=== PATIENT | male | born 1985 | race Caucasian/White ===

== ENCOUNTER 2019-04-27 23:12 | Emergency (ER) | payer MEDICARE ==
[~2019-04-27] VITALS: Ht 172.7 cm; Wt 81.8 kg
[2019-04-27 23:29] VITALS: Ht 172.7 cm; Wt 81.8 kg
[2019-04-27 23:42] LABS: HEMATOCRIT 39.9 % (42.0-54.0); HEMOGLOBIN 13.4 g/dL (13.5-17.5); LYMPHOCYTES 43.3 % (15-50); MCH 27.2 pg (26.0-34.0); MCHC 33.6 g/dL (31.0-37.0); MCV 80.9 fL (80.0-100.0); MEAN PLATELET VOLUME 9.9 fL (7.4-10.4); NEUTROPHILS 48.1 % (40-80); PLATELET COUNT 233 10x3/uL (130-400); RBC 4.93 10x6/uL (4.20-6.10); RDW 14.5 % (11.5-14.5); WBC 9.9 10x3/uL (4.8-10.8)
[2019-04-27 23:51] LABS: CALC OSMOLALITY 280 mosm/kg (275-300); CALCIUM 8.5 mg/dL (8.5-10.1); CARBON DIOXIDE 25.6 mmol/L (21.0-32.0); CHLORIDE - SERUM 106 mmol/L (98-107); GLUCOSE 109 mg/dL (74-106); POTASSIUM - SERUM 3.6 mmol/L (3.5-5.1); SODIUM 140 mmol/L (136-145); UREA NITROGEN 14 mg/dL (7-18); eGFR NON AFRICAN AMERICAN > 90 mL/min (90-120)
[2019-04-27 23:52] LABS: APTT 24.4 SECONDS (22.8-39.4); INR 1.06 (0.85-1.17); PROTIME 13.3 SECONDS (11.6-15.0)
[2019-04-27 23:57] LABS: ALBUMIN 3.3 g/dL (3.4-5.0); ALKALINE PHOSPHATASE 85 U/L (46-116); ALT (SGPT) 44 U/L (10-68); BILIRUBIN - TOTAL 0.24 mg/dL (0.2-1.3); PROTEIN - SERUM 6.5 g/dL (6.4-8.2)
[2019-04-28 02:30] VITALS: BP 131/85
== END 2019-04-28 02:30 | disposition home or self-care (01) ==
LOC: D.ER 23:12
PROVIDERS: Family Medicine
DX: K62.5 Hemorrhage of anus and rectum (principal)

== ENCOUNTER → 2019-06-09 11:42 | Outpatient (CLI) | payer MEDICARE ==
[2019-04-27 23:29] VITALS: BMI 27.4
[2019-06-09 12:24] LABS: BASOPHILS 0.4 % (0-2); EOSINOPHILS 3.7 % (0-7); HEMATOCRIT 40.9 % (42.0-54.0); IMMATURE GRANULOCYTES 0.2 % (0-5); LYMPHOCYTES 38.7 % (15-50); MCH 24.8 pg (26.0-34.0); MCHC 31.8 g/dL (31.0-37.0); MCV 77.9 fL (80.0-100.0); MEAN PLATELET VOLUME 10.3 fL (7.4-10.4); MONOCYTES 10.9 % (2-11); NEUTROPHILS 46.1 % (40-80); PLATELET COUNT 274 10x3/uL (130-400); RBC 5.25 10x6/uL (4.20-6.10); RDW 14.5 % (11.5-14.5); WBC 5.4 10x3/uL (4.8-10.8)
[2019-06-09 12:49] LABS: % SATURATION 9 % (15-55); IRON 39 ug/dl (35-150); TOTAL IRON BIND CAPACITY 424 ug/dl (260-445); UNSAT IRON BIND CAPACITY 385 ug/dl (150-375)
== END | disposition home or self-care (01) ==
LOC: D.LAB 11:42
PROVIDERS: ATTEND Clinical Nurse Specialist Family Health
DX: K92.1 Melena (principal); D64.9 Anemia, unspecified

== ENCOUNTER → 2019-07-22 10:17 | Outpatient (CLI) | payer MEDICARE, OTHER ==
[2019-04-27 23:29] VITALS: BMI 27.4
[2019-07-22 13:03] LABS: BASOPHILS 0.2 % (0-2); EOSINOPHILS 3.2 % (0-7); HEMOGLOBIN 12.3 g/dL (13.5-17.5); IMMATURE GRANULOCYTES 0.2 % (0-5); LYMPHOCYTES 40.5 % (15-50); MCH 23.6 pg (26.0-34.0); MCHC 31.5 g/dL (31.0-37.0); MCV 74.7 fL (80.0-100.0); MEAN PLATELET VOLUME 9.9 fL (7.4-10.4); MONOCYTES 6.9 % (2-11); PLATELET COUNT 279 10x3/uL (130-400); RBC 5.22 10x6/uL (4.20-6.10); RDW 15.4 % (11.5-14.5); WBC 5.7 10x3/uL (4.8-10.8)
[2019-07-22 13:05] LABS: ALBUMIN 3.7 g/dL (3.4-5.0); ALKALINE PHOSPHATASE 91 U/L (30-120); ALT (SGPT) 37 U/L (10-68); BILIRUBIN - DIRECT 0.07 mg/dL (0.00-0.30); BILIRUBIN - INDIRECT 0.16 mg/dL (0.00-1.00); BILIRUBIN - TOTAL 0.23 mg/dL (0.2-1.3); CALC OSMOLALITY 283 mosm/kg (275-300); CALCIUM 9.1 mg/dL (8.5-10.1); CARBON DIOXIDE 27.8 mmol/L (21.0-32.0); CHLORIDE - SERUM 106 mmol/L (98-107); CREATININE - SERUM 1.1 mg/dL (0.6-1.3); GLUCOSE 99 mg/dL (74-106); POTASSIUM - SERUM 4.3 mmol/L (3.5-5.1); PROTEIN - SERUM 7.1 g/dL (6.4-8.2); SODIUM 142 mmol/L (136-145); UREA NITROGEN 15 mg/dL (7-18); eGFR NON AFRICAN AMERICAN 82 mL/min (90-120)
== END | disposition home or self-care (01) ==
LOC: D.LAB 10:15 → D.CT 10:30
PROVIDERS: ATTEND Surgery
DX: C18.9 Malignant neoplasm of colon, unspecified (principal)

== ENCOUNTER 2019-07-26 11:37 | Inpatient (IN) | payer MEDICARE, OTHER ==
[~2019-07-26] VITALS: Ht 177.8 cm; Wt 107.0 kg
[2019-07-26 12:06] LABS: BASOPHILS 0.4 % (0-2); EOSINOPHILS 3.7 % (0-7); HEMATOCRIT 41.9 % (42.0-54.0); HEMOGLOBIN 13.5 g/dL (13.5-17.5); IMMATURE GRANULOCYTES 0.2 % (0-5); LYMPHOCYTES 37.6 % (15-50); MCH 23.6 pg (26.0-34.0); MCHC 32.2 g/dL (31.0-37.0); MCV 73.3 fL (80.0-100.0); MONOCYTES 7.2 % (2-11); NEUTROPHILS 50.9 % (40-80); PLATELET COUNT 280 10x3/uL (130-400); RBC 5.72 10x6/uL (4.20-6.10); RDW 15.2 % (11.5-14.5); WBC 5.5 10x3/uL (4.8-10.8)
[2019-07-26] MEDS ORDERED: LISINOPRIL5 MG PO (12:11)
[2019-07-26 12:28] LABS: CALC OSMOLALITY 275 mosm/kg (275-300); CALCIUM 8.8 mg/dL (8.5-10.1); CARBON DIOXIDE 26.1 mmol/L (21.0-32.0); CHLORIDE - SERUM 105 mmol/L (98-107); CREATININE - SERUM 1.1 mg/dL (0.6-1.3); GLUCOSE 91 mg/dL (74-106); POTASSIUM - SERUM 3.9 mmol/L (3.5-5.1); SODIUM 138 mmol/L (136-145); UREA NITROGEN 13 mg/dL (7-18); eGFR NON AFRICAN AMERICAN 82 mL/min (90-120)
[2019-07-26 12:31] VITALS: BP 125/90; BMI 33.9
--- NOTE | 2019-07-26 15:34 | NUR ---
1535 report given to ANABELA DAWSON PT TOLERATING CLEAR LIQ DIET.
[2019-07-26 16:26] VITALS: BP 146/79; BMI 33.9
[2019-07-26 20:00] VITALS: BP 139/84
--- NOTE | 2019-07-26 21:40 | NUR ---
AWAKE. LYING IN BED. FATHER AT BEDSIDE. RESP EVEN AND NONLABORED. DENIES PAIN. STATES EVERYTHING HE DRINKS COMES BACK OUT. REPORTS DIARRHEA. HAD COLONOSCOPY TODAY. NPO AFTER MN AND VERBALIZES UNDERSTANDING. CONSENTS SIGNED AND ON CHART. D5LR WITH 20 MEQ KCL @ 125 MLHR INFUSING IN RT HAND. ALERT AND ORIENTED X4. NO DISTRESS. CL IN REACH.
[2019-07-27] VITALS (13 sets, daily range): BP systolic 108–141; BP diastolic 60–94
--- NOTE | 2019-07-27 01:01 | NUR ---
LYING ON LT SIDE IN BED. AWAKE. DENIES PAIN. NO DISTRESS. FATHER AT BEDSIDE. SR ELEVATED X2. CL IN REACH.
[2019-07-27 05:19] LABS: BASOPHILS 0.2 % (0-2); EOSINOPHILS 3.1 % (0-7); HEMATOCRIT 35.9 % (42.0-54.0); HEMOGLOBIN 11.3 g/dL (13.5-17.5); LYMPHOCYTES 40.2 % (15-50); MCH 23.1 pg (26.0-34.0); MCHC 31.5 g/dL (31.0-37.0); MCV 73.3 fL (80.0-100.0); MEAN PLATELET VOLUME 9.8 fL (7.4-10.4); MONOCYTES 8.4 % (2-11); NEUTROPHILS 48.1 % (40-80); PLATELET COUNT 251 10x3/uL (130-400); RDW 15.3 % (11.5-14.5); WBC 5.7 10x3/uL (4.8-10.8)
[2019-07-27 05:30] LABS: CALC OSMOLALITY 279 mosm/kg (275-300); CALCIUM 7.6 mg/dL (8.5-10.1); CARBON DIOXIDE 27.1 mmol/L (21.0-32.0); CHLORIDE - SERUM 108 mmol/L (98-107); GLUCOSE 100 mg/dL (74-106); INR 1.1 (0.85-1.17); POTASSIUM - SERUM 3.8 mmol/L (3.5-5.1); PROTIME 14.2 SECONDS (11.6-15.0); SODIUM 141 mmol/L (136-145); eGFR NON AFRICAN AMERICAN > 90 mL/min (90-120)
[2019-07-27 05:40] LABS: UREA NITROGEN 9 mg/dL (7-18)
--- NOTE | 2019-07-27 06:40 | NUR ---
HAS HAD HCG SHOWER THIS AM. DENIES NEEDS. CALM AND IN GOOD SPIRITS. FATHER AT BEDSIDE. CL IN REACH. NO DISTRESS.
--- NOTE | 2019-07-27 17:15 | NUR ---
PATIENT BACK TO ROOM FROM SURGERY VS STABLE. IV INTACT. PAIN AT A 8. SCDS ON AND WORKING. WILL GIVE PAIN MEDS AND START DRAMA DIRECTOR . PROVENA WOUND VAC ON. EDWARD DRAIN COMPRESSED. FAMILY AT BEDSIDE. CALL LIGHT WITHN REACH.
--- NOTE | 2019-07-27 18:45 | NUR ---
PATIENT IN BED WITH VS STABLE. NO COMPLAINTS. IV AND VERA INTACT. PROVENA AND SCDS ON AND WORKING. PAIN AT A 4 NOW. ANGLEDOZER OPERATOR ON AND WORKING. CALL LIGHT WITHIN REACH.
--- NOTE | 2019-07-27 19:30 | NUR ---
PT SITTING UP IN BED RESTING WITHOUT DISTRESS. AOX4, MOTHER AT BEDSIDE. IV RIGHT HAND IFUSING D5LR 20K @ 125 WITH MORPHINE FINISH SPECIALIST. STATES PAIN 09/01. DRESSING TO ABD CDI. EDWARD DRAIN IN PLACE. WOUND VAC WORKING, SCDS ON BILAT. O2 2L/NC. VREA IN PLACE. PROVIDED ICE CHIPS. DENIES OTHER NEEDS. CL IN REACH, WILL CTM
--- NOTE | 2019-07-27 22:00 | NUR ---
IV RIGHT HAND INFILTRATED, REMOVED WITH CATHETER INTACT. RESITED 20G IV LEFT FA X1 ATTEMPT
[2019-07-28] VITALS: BP 121/72
[2019-07-28 04:00] VITALS: BP 130/71
[2019-07-28 05:50] LABS: BASOPHILS 0.1 % (0-2); EOSINOPHILS 0 % (0-7); HEMATOCRIT 36.9 % (42.0-54.0); HEMOGLOBIN 11.7 g/dL (13.5-17.5); IMMATURE GRANULOCYTES 0.2 % (0-5); LYMPHOCYTES 9.9 % (15-50); MCH 23.1 pg (26.0-34.0); MCHC 31.7 g/dL (31.0-37.0); MCV 72.8 fL (80.0-100.0); MEAN PLATELET VOLUME 10.2 fL (7.4-10.4); MONOCYTES 7.6 % (2-11); NEUTROPHILS 82.2 % (40-80); PLATELET COUNT 281 10x3/uL (130-400); RBC 5.07 10x6/uL (4.20-6.10); RDW 15.4 % (11.5-14.5)
[2019-07-28 06:03] LABS: WBC 15.4 10x3/uL (4.8-10.8)
[2019-07-28 06:14] LABS: CALCIUM 8.3 mg/dL (8.5-10.1); CARBON DIOXIDE 24.3 mmol/L (21.0-32.0); CREATININE - SERUM 1.2 mg/dL (0.6-1.3); POTASSIUM - SERUM 4.3 mmol/L (3.5-5.1)
[2019-07-28 09:34] VITALS: BP 122/68
--- NOTE | 2019-07-28 11:20 | NUR ---
ORDER TO TURN UP V BELT MOLD ASSEMBLER AND CURER TO 07/04/19. PATIENT ISNT USING V BELT MOLD ASSEMBLER AND CURER AT THIS TIME AND SAYS HIS PAIN IS AT A 2-5 AT TIMES. STATED HE ONLY PUSHES THE BUTTON IF HE REALLY NEEDS TO. EXPLAINED THAT IF HIS PAIN IS WORSE AND HE NEEDS MORE MEDS I WILL TURN IT UP IF NEEDED. VERBALIZED UNDERSTANDING.
--- NOTE | 2019-07-28 11:28 | NUR ---
PATIENT VERA REMOVED AT THIS TIME. EXPLAINED TO PATIENT THAT HE WILL NEED TO GET OUT OF BED AND AMBULATE IN HALLS. VERBALIZED UNDERSTANDING. NO QUESTIONS AT THIS TIME. IV INTACT. URINAL GIVEN TO PATIENT. CALL LIGHT WITHIN REACH.
--- NOTE | 2019-07-28 12:15 | NUR ---
PATIENT UP OOB VOIDED WITH NO PROBLEMS. AMBULATING IN ROOM AND UP TO CHAIR. PT TO WALK PATIENT. WOUND VAC AND IV INTACT. EDWARD DRAIN COMPRESSED DRESSING CDI. NO COMPLAINTS OR SIGNS OF DISTRESS. CALL LIGHT WITHIN REACH.
--- NOTE | 2019-07-28 18:03 | NUR ---
PATIENT IN BED WITH IV INTACT. NO COMPLAINTS OR SIGNS OF DISTRESS. PROVENA WOUND VAC INTACT. VERA TO GRAVITY. BSCDS ON AND WORKING. CALL LIGHT WITHIN REACH.
--- NOTE | 2019-07-28 18:06 | NUR ---
PATIENT UP IN CHAIR WITH NO COMPLAINTS OR SIGNS OF DISTRESS. IV INTACT. EDWARD AND PROVENA INTACT. CALL LIGHT WITHIN REACH.
[2019-07-28 18:07] VITALS: BP 110/78
[2019-07-28 20:00] VITALS: BP 133/87
[2019-07-29] VITALS: BP 122/77
[2019-07-29 04:00] VITALS: BP 118/73
[2019-07-29 04:14] LABS: BASOPHILS 0.1 % (0-2); EOSINOPHILS 0.5 % (0-7); HEMATOCRIT 32.3 % (42.0-54.0); HEMOGLOBIN 10.2 g/dL (13.5-17.5); IMMATURE GRANULOCYTES 0.1 % (0-5); LYMPHOCYTES 21.5 % (15-50); MCH 23.3 pg (26.0-34.0); MCHC 31.6 g/dL (31.0-37.0); MCV 73.7 fL (80.0-100.0); MEAN PLATELET VOLUME 9.9 fL (7.4-10.4); MONOCYTES 8.8 % (2-11); PLATELET COUNT 248 10x3/uL (130-400); RBC 4.38 10x6/uL (4.20-6.10); RDW 15.9 % (11.5-14.5)
[2019-07-29 04:15] LABS: WBC 9.5 10x3/uL (4.8-10.8)
[2019-07-29 04:30] LABS: CALCIUM 8.3 mg/dL (8.5-10.1); CARBON DIOXIDE 27.1 mmol/L (21.0-32.0); CHLORIDE - SERUM 108 mmol/L (98-107); CREATININE - SERUM 1.1 mg/dL (0.6-1.3); POTASSIUM - SERUM 3.7 mmol/L (3.5-5.1); SODIUM 141 mmol/L (136-145); eGFR NON AFRICAN AMERICAN 82 mL/min (90-120)
[2019-07-29 04:33] LABS: CALC OSMOLALITY 281 mosm/kg (275-300); GLUCOSE 104 mg/dL (74-106); UREA NITROGEN 15 mg/dL (7-18)
--- NOTE | 2019-07-29 04:45 | NUR ---
ASSESSED AT THE BEGINNING OF THE SHIFT. PT IS ALERT AND ORIENTED, ABLE TO VERBALIZE NEEDS. HE HAS CHE UP WALKING EARLIER AND NO LONGER HAS A VERA BUT HAS DONE WELL BY HIMSELF. HE DID COMPLAIN ABOUT HIS IV HURTING EVEN THOUGH IT FLUSHED WELL. IT WAS MOVED TO HIS RIGHT WRIST. WOUND VAC REMAINS IN PLACE AND EDWARD DRAIN ACTIVATED. SCD'S OFF AT THIS TIME AND IS USING HIS WASHING MACHINE INSTALLER FOR PAIN CONTROL.
--- NOTE | 2019-07-29 07:41 | NUR ---
RESTING IN BED WITH EYES OPEN, NO S/S OF DISTRESS NOTED AT THIS TIME. IV LOCATED TO RIGHT WRIST RUNNING D5LR W/20K+, MORPHINE OPERATIONS RESEARCH ENGINEER. WOUND VAC PRESENT TO MIDLINE, EDWARD DRAIN LOCATED TO RIGHT SIDE. DENIES CURRENT NEEDS, WILL CONT TO MONITOR.
[2019-07-29 08:43] VITALS: BP 134/84
[2019-07-29 12:12] VITALS: BP 138/93
--- NOTE | 2019-07-29 13:34 | NUR ---
STILL WAITING FOR 1100 FLUIDS TO COME UP FROM PHARMACY, HAVE SPOKEN WITH THEM X3.
--- NOTE | 2019-07-29 13:50 | NUR ---
Nutrition follow-up: Pt POPD 2 of hemicolectomy Clear liquid diet Wound VAC Wt: 236# Labs reviewed Recommend starting Clinimix @ 100 ml/hr until po diet can resume RDN following.
[2019-07-29 13:52] VITALS: Ht 177.8 cm; Wt 107.0 kg
--- NOTE | 2019-07-29 15:32 | MORECARE ---
CASE MANAGEMENT DISCHARGE SUMMARY PATIENT: ELIS JAMES UNIT: [id number] ADM DATE: 07/26/19 AGE: 33 : 87 SEX: M ROOM/BED: D.2209 AUTHOR: CIRA,DOC PHYSICIAN: REFERRING PHYSICIAN: JEREMÍAS SWAN MD DATE OF SERVICE: 07/29/19 Discharge Plan Patient Name: ELIS JAMES Facility: [facility]:[place] : 1985 Planned Disposition: Home or Self Care Anticipated Discharge Date: Discharge Date: Expected LOS: Initial Reviewer: [email or web address] Initial Review Date: 07/27/2019 Generated: 07/29/19 4:31 pm Comments DCP- Discharge Planning Updated by [email or web address]: Shy Hutchison on 07/29/19 2:[address] Patient Name: ELIS JAMES Admission Status: Elective Accout number: [id number] Admission Date: 07-26-2019 : 1985 Admission Diagnosis:MALIGNANT NEOPLASM OF COLON, UNSPECIFIED Attending: JEREMÍAS SWAN Current LOS: 3 Anticipated DC Date: Planned Disposition: Home or Self Care Primary Insurance: Abigail Stewart Discharge Planning Comments: CM met with patient to complete initial dc planning assessment. CM educated patient on the CM role and verbal consent given by patient to complete assessment. Patient lives at home with his and mother where he is independent with his care. At discharge patient plans to return home and feels this is a safe discharge. CM discussed availability of home health, rehab services, and medical equipment. He denies any anticipated needs at this time. Patient denied known discharge needs at this time. CM will continue to follow and will assist as needed with dc plans/needs. Metal Bed Assembler: Shy Hutchison DCP- Discharge Planning Updated by [email or web address]: Shy Hutchison on 07/29/19 12:[address] EVANE WITH [facility] CALLED AND STATED THAT SHE IS HIS CM AND CAN HELP WITH DC PLANNING HER NUMBER IS [phone] EXT [phone] DCPIA - Discharge Planning Initial Assessment Updated by [email or web address]: Shy Hutchison on 07/29/19 3:27 pm * Is the patient Alert and Oriented? Yes * How many steps to enter\exit or inside your home? 1 FLIGHT * PCP DR ROBLES * Pharmacy [facility] [address] * Preadmission Environment Home with Family * ADLs Independent * Equipment None * List name and contact numbers for known caregivers / representatives who currently or will assist patient after discharge: KAYDEN (MOTHER) [phone] VICKIE () * Verbal permission to speak to the caregivers and representatives has been obtained from the patient. N/A * Community resources currently utilized None * Additional services required to return to the preadmission environment? No * Can the patient safely return to the preadmission environment? Yes * Has this patient been hospitalized within the prior 30 days at any hospital? No Patient Name: ELIS JAMES Page [id number] at 1532 All edits/amendments must be made on the electronic document DICTATION DATE: 07/29/191530 HIGH SCHOOL BAND TEACHER: PAMELA 07/29/191530 RPT#: [id number] DC DATE: STATUS: ADM IN [facility] [address] [place] [address] END OF REPORT
[2019-07-29 17:03] VITALS: BP 128/77
--- NOTE | 2019-07-29 17:59 | OP ---
PATIENT NAME: ELIS JAMES MEDICAL RECORD: [id number] :[birth year] LOCATION:D.MS [address] ADMISSION DATE:07/26/19 SURGEON: SHARI COPELAND MD DATE OF OPERATION: 07/27/2019 FIRE INVESTIGATION LIEUTENANT'S NOTE: I assisted Dr. Vahid Quiroz with hand-assisted laparoscopic sigmoid colectomy. My involvement in the case included only dilation of the rectum and advancement and firing of the EEA stapler and then the pneumatic check of the staple line. I scrubbed in. I went below. Utilizing well lubricated EEA sizers, I was able to advance all the way through the anus and up into the rectum and advanced into the rectal stump. I dilated to 33-mm. I then advanced a 25-mm EEA stapler. Under his guidance, I deployed the needle on the anterior surface of the rectum. It was attached to the anvil. I then tightened down on the stapling device and it was held in place for 2 minutes and then fired. I then loosened up on the stapling device and removed it. There were 2 doughnuts of the large bowel within the stapling device. Dr. Quiroz then prepared the anastomosis further with some and some sutures at the anastomosis. I then placed a Sb syringe up through the anus and sequentially inflated the rectum. We were able to visualize this through the laparotomy incision with saline covering the anastomosis. There was no bubbling from the anastomosis and therefore an airtight anastomosis. It was at this point that I scrubbed out. TRANSINT:[id number] Voice Confirmation ID: [id number] DOCUMENT ID: [id number] SHARI COPELAND MD at 1759 CC: [id number] DICTATION DATE: 07/27/19 1616 TASTE TESTER: 07/27/19 2130 ADM IN [facility] [address] [place] [address]
[2019-07-29 20:26] VITALS: BP 125/93
[2019-07-30 00:35] VITALS: BP 126/73
--- NOTE | 2019-07-30 03:06 | NUR ---
PATIENT REPORTS THAT HE IS PASSING SMALL AMOUNTS OF GAS
--- NOTE | 2019-07-30 03:18 | NUR ---
I have reviewed this patient and I concur with the Shift Assessment completed by the Licensed Practical Nurse today this shift.
[2019-07-30 04:55] VITALS: BP 139/91
[2019-07-30 04:57] LABS: BASOPHILS 0.1 % (0-2); EOSINOPHILS 1.8 % (0-7); HEMATOCRIT 34.6 % (42.0-54.0); HEMOGLOBIN 10.9 g/dL (13.5-17.5); IMMATURE GRANULOCYTES 0.2 % (0-5); LYMPHOCYTES 19.6 % (15-50); MCH 23.4 pg (26.0-34.0); MCHC 31.5 g/dL (31.0-37.0); MCV 74.4 fL (80.0-100.0); MEAN PLATELET VOLUME 9.6 fL (7.4-10.4); MONOCYTES 8.1 % (2-11); NEUTROPHILS 70.2 % (40-80); PLATELET COUNT 260 10x3/uL (130-400); RBC 4.65 10x6/uL (4.20-6.10); RDW 15.9 % (11.5-14.5); WBC 8.5 10x3/uL (4.8-10.8)
[2019-07-30 05:13] LABS: CALC OSMOLALITY 275 mosm/kg (275-300); CALCIUM 8.6 mg/dL (8.5-10.1); CARBON DIOXIDE 26.8 mmol/L (21.0-32.0); CHLORIDE - SERUM 104 mmol/L (98-107); GLUCOSE 107 mg/dL (74-106); POTASSIUM - SERUM 3.8 mmol/L (3.5-5.1); SODIUM 138 mmol/L (136-145); UREA NITROGEN 13 mg/dL (7-18); eGFR NON AFRICAN AMERICAN > 90 mL/min (90-120)
[2019-07-30 09:52] VITALS: BP 145/101
[2019-07-30 11:09] LABS: HEPATITIS C ANTIBODY <0.1 (0.0-0.9)
--- NOTE | 2019-07-30 11:36 | NUR ---
C/O NAUSEA DURING THE NIGHT, AND REFLUX. DOES NOT WANT TO EAT MUCH. TRYING TO EAT JELLO AND DRINK.
[2019-07-30 14:24] VITALS: BP 138/94
[2019-07-30 16:56] VITALS: BP 133/92
--- NOTE | 2019-07-30 19:05 | NUR ---
PATIENT HAS SEVERAL FAMILY MEMBERS IN ROOM. REPORTS SEVERAL BOWEL MOVEMENTS TODAY. INCISION REMAINS WITHOUT REDNESS OR SWELLING. WOUND VAC ATTACHED, TURNED ON, AND WORKING APPROPRIATELY. EDWARD DRAIN TO THE LEFT SIDE OF ABDOMEN WHICH HAS SCANT AMOUNT OF SEROUS DRAINAGE. PATINET HAS RIGHT FOERARM IV THAT IS PATENT AND INFUSING D5LR WITH 20 K @ 40 MLS PER HOUR. PATIENT DENIES NEEDS AT THIS TIME. STATES HE DOES NOT WANT MIRALAX AT 2100, THAT HE HAS HAD SEVERAL BOWEL MOVEMENTS ON HIS OWN. HE ALSO STATES THAT HE WOULD RATHER HAVE THE NORCO THAN REGULAR SCHEDULED TYLENOL WHEN HS MEDICATION ARE DUE. DENIES FURTHER NEEDFS AT THIS TIME. CALL LIGHT IS IN REACH OF PATIENT. CPOC.
[2019-07-30 20:00] VITALS: BP 133/91
--- NOTE | 2019-07-30 21:20 | NUR ---
HS MEDICATIONS PROVIDED. PATIENT STATES HE HAD TWO MORE TINY BOWEL MOVEMENTS. DENIES NEEDS AT THIS TIME. CPOC.
--- NOTE | 2019-07-30 22:58 | NUR ---
RESTING WITH NO SIGNS OR SYMPTOMS OF DISTRESS AT THIS TIME. CALL LIGHT REMAINS IN REACH. CPOC.
--- NOTE | 2019-07-30 23:00 | NUR ---
I have reviewed this patient and I concur with the Shift Assessment completed by the Licensed Practical Nurse today this shift.
[2019-07-31] VITALS: BP 139/95
--- NOTE | 2019-07-31 00:58 | NUR ---
PATIENT COMPLAINING OF PAIN TO THE RIGHT FA IV. ASSESSED AND NO SIGNS OF INFILTRATION. RESITED IV TO THE LEFT HAND. 22 G, ONE ATTEMPT.
[2019-07-31 04:00] VITALS: BP 136/93
[2019-07-31 06:42] LABS: BASOPHILS 0.1 % (0-2); EOSINOPHILS 3.3 % (0-7); HEMATOCRIT 31.2 % (42.0-54.0); HEMOGLOBIN 9.8 g/dL (13.5-17.5); IMMATURE GRANULOCYTES 0.1 % (0-5); LYMPHOCYTES 27.4 % (15-50); MCH 23.2 pg (26.0-34.0); MCHC 31.4 g/dL (31.0-37.0); MCV 73.8 fL (80.0-100.0); MEAN PLATELET VOLUME 10.3 fL (7.4-10.4); MONOCYTES 7.3 % (2-11); NEUTROPHILS 61.8 % (40-80); PLATELET COUNT 269 10x3/uL (130-400); RBC 4.23 10x6/uL (4.20-6.10); RDW 15.9 % (11.5-14.5); WBC 6.8 10x3/uL (4.8-10.8)
[2019-07-31 07:04] LABS: CALC OSMOLALITY 269 mosm/kg (275-300); CALCIUM 8.7 mg/dL (8.5-10.1); CARBON DIOXIDE 25.2 mmol/L (21.0-32.0); CHLORIDE - SERUM 102 mmol/L (98-107); CREATININE - SERUM 0.8 mg/dL (0.6-1.3); GLUCOSE 100 mg/dL (74-106); POTASSIUM - SERUM 3.7 mmol/L (3.5-5.1); SODIUM 135 mmol/L (136-145); UREA NITROGEN 13 mg/dL (7-18); eGFR NON AFRICAN AMERICAN > 90 mL/min (90-120)
[2019-07-31 08:38] VITALS: BP 126/87
[2019-07-31] MEDS ORDERED: ZOFRAN4 MG PO (10:35)
[2019-07-31] MEDS ORDERED: HYDROCODON-ACE1 EAC7 PO (10:35)
[2019-07-31] MEDS ORDERED: MIRALAX17 GM PO (10:35)
--- NOTE | 2019-07-31 12:00 | NUR ---
DISCHARGE INSTRUCTIONS GONE OVER WIHT THE PATIENT AND HIS MOTHER. THE WOUND VAC IS OFF AND THE EDWARD IS OUT, REMOVED THE IV FROM THE LEFT HAND. QUESTIONS ANSWERED, HE IS READY TO GO HOME. FELT VIA WHEELCHAIR.
--- NOTE | 2019-08-01 12:02 | MORECARE ---
CASE MANAGEMENT DISCHARGE SUMMARY PATIENT: ELIS JAMES UNIT: [id number] ADM DATE: 07/26/19 AGE: 33 : [birth year] SEX: M ROOM/BED: D.2209 AUTHOR: CIRA,DOC PHYSICIAN: REFERRING PHYSICIAN: JEREMÍAS SWAN MD DATE OF SERVICE: 08/01/19 Discharge Plan Patient Name: ELIS JAMES Facility: [facility]:[place] : 1985 Planned Disposition: Home or Self Care Anticipated Discharge Date: Discharge Date: 07/31/2019 Expected LOS: 0 Initial Reviewer: [email or web address] Initial Review Date: 07/27/2019 Generated: 08/01/19 1:01 pm Comments DCP- Discharge Planning Updated by [email or web address]: Shy Hutchison on 07/29/19 1:[address] Patient Name: ELIS JAMES Admission Status: Elective Accout number: [id number] Admission Date: 07-26-2019 : 1985 Admission Diagnosis:MALIGNANT NEOPLASM OF COLON, UNSPECIFIED Attending: JEREMÍAS SWAN Current LOS: 3 Anticipated DC Date: Planned Disposition: Home or Self Care Primary Insurance: [employer] Discharge Planning Comments: CM met with patient to complete initial dc planning assessment. CM educated patient on the CM role and verbal consent given by patient to complete assessment. Patient lives at home with his and mother where he is independent with his care. At discharge patient plans to return home and feels this is a safe discharge. CM discussed availability of home health, rehab services, and medical equipment. He denies any anticipated needs at this time. Patient denied known discharge needs at this time. CM will continue to follow and will assist as needed with dc plans/needs. Integrated Circuit Ic Layout Designer: Shy Hutchison DCP- Discharge Planning Updated by [email or web address]: Shy Hutchison on 07/29/19 11:[address] KAITLIN WITH [facility] CALLED AND STATED THAT SHE IS HIS CM AND CAN HELP WITH DC PLANNING HER NUMBER IS [phone] EXT [phone] DCPIA - Discharge Planning Initial Assessment Updated by [email or web address]: Shy Hutchison on 07/29/19 3:27 pm * Is the patient Alert and Oriented? Yes * How many steps to enter\exit or inside your home? 1 FLIGHT * PCP DR ROBLES * Pharmacy [facility] ON [address] * Preadmission Environment Home with Family * ADLs Independent * Equipment None * List name and contact numbers for known caregivers / representatives who currently or will assist patient after discharge: KAYDEN (MOTHER) [phone] VICKIE () * Verbal permission to speak to the caregivers and representatives has been obtained from the patient. N/A * Community resources currently utilized None * Additional services required to return to the preadmission environment? No * Can the patient safely return to the preadmission environment? Yes * Has this patient been hospitalized within the prior 30 days at any hospital? No Last DP export: 07/29/19 1:32 pm Patient Name: ELIS JAMES Page [phone] at 1202 All edits/amendments must be made on the electronic document DICTATION DATE: 08/01/19 1201 THERAPY ASSISTANT: PAMELA 08/01/19 1201 RPT#: [id number] DC DATE:07/31/19 STATUS: DIS IN [facility] [address] [place] [address] END OF REPORT
== END 2019-07-31 17:29 | disposition home or self-care (01) | DRG 330 ==
LOC: D.MS 11:37 → D.OPS 11:37 → D.MS 15:44 → D.OPS 15:45 → D.MS 07-31 17:29
PROVIDERS: Anesthesiology; Internal Medicine Hematology & Oncology; ADMIT Surgery; ATTEND Surgery
PROC: 0DJD8ZZ Inspection of Lower Intestinal Tract, Via Natural or Artificial Opening Endoscopic (ICD-10-PCS; 2019-07-26)
PROC: 0DBP0ZZ Excision of Rectum, Open Approach (ICD-10-PCS; 2019-07-27)
PROC: 0DTN0ZZ Resection of Sigmoid Colon, Open Approach (ICD-10-PCS; principal; 2019-07-27 11:30)
DX: C18.7 Malignant neoplasm of sigmoid colon (principal); K62.5 Hemorrhage of anus and rectum; J45.909 Unspecified asthma, uncomplicated

== ENCOUNTER → 2019-09-07 07:04 | Day surgery (SDC) | payer MEDICARE, OTHER ==
[~2019-09-07] VITALS: Ht 177.8 cm; Wt 102.5 kg
[~2019-09-07 07:04] MED LIST: HYDROCODON-ACE1 EAC7 PO; LISINOPRIL5 MG PO; MIRALAX17 GM PO; ZOFRAN4 MG PO; ZOLOFT25 MG PO
[2019-09-07 07:28] LABS: BASOPHILS 0.3 % (0-2); EOSINOPHILS 3.3 % (0-7); HEMATOCRIT 40.3 % (42.0-54.0); HEMOGLOBIN 12.5 g/dL (13.5-17.5); IMMATURE GRANULOCYTES 0.3 % (0-5); LYMPHOCYTES 39.9 % (15-50); MCH 22.2 pg (26.0-34.0); MCV 71.5 fL (80.0-100.0); MEAN PLATELET VOLUME 9.6 fL (7.4-10.4); MONOCYTES 8.6 % (2-11); NEUTROPHILS 47.6 % (40-80); PLATELET COUNT 278 10x3/uL (130-400); RBC 5.64 10x6/uL (4.20-6.10); RDW 16.9 % (11.5-14.5); WBC 5.8 10x3/uL (4.8-10.8)
[2019-09-07 07:40] LABS: APTT 30.2 SECONDS (22.8-39.4); INR 1.05 (0.85-1.17); PROTIME 13.6 SECONDS (11.6-15.0)
[2019-09-07 08:19] VITALS: BP 124/82; Ht 177.8 cm; Wt 102.5 kg
== END | disposition home or self-care (01) ==
LOC: D.PAN 07:04 → D.OPS 09:30 → D.PAN 09:30
PROVIDERS: Anesthesiology; ATTEND Surgery
DX: C18.9 Malignant neoplasm of colon, unspecified (principal); J45.909 Unspecified asthma, uncomplicated

== ENCOUNTER → 2020-09-10 08:23 | Outpatient (CLI) | payer MEDICARE, OTHER ==
[2019-09-07 08:19] VITALS: BMI 32.4
== END | disposition home or self-care (01) ==
LOC: D.CT 08:23
PROVIDERS: ATTEND Internal Medicine Hematology & Oncology
DX: C18.9 Malignant neoplasm of colon, unspecified (principal)